=== PATIENT | female | born 1995 | race Caucasian/White ===

== ENCOUNTER 2022-07-17 20:54 | Emergency (ER) | payer MEDICAID ==
[~2022-07-17] VITALS: Ht 175.3 cm; Wt 65.9 kg
[2022-07-17 20:55] VITALS: BP 116/66
[2022-07-17] MEDS ORDERED: LIDOCAINE 2%/EPI 1:100,000 inj. Multi-dose 20 ML VIAL SQ ONE (23:15)
== END 2022-07-18 00:24 | disposition home or self-care (01) ==
LOC: ER 20:55
DX: S01.01XA Laceration without foreign body of scalp, initial encounter (principal); W18.39XA Other fall on same level, initial encounter; Y93.89 Activity, other specified; Y92.89 Other specified places as the place of occurrence of the external cause; Y99.8 Other external cause status
CPT/HCPCS: 12001; 99282; A6449